=== PATIENT | female | born 1945 | race Caucasian/White ===

== ENCOUNTER → 2021-04-08 | Day surgery (SDC) | payer OTHER ==
[~2021-04-08] VITALS: Ht 160 cm; Wt 84.9 kg
[~2021-04-08] MED LIST: 3IN1 COMMODE; ASPIRIN EC81 MG PO; CITRACAL-D3 MA1 EACH PO; COZAAR100 MG PO; FLONASE ALLER15.8 ML; HCTZ12.5 MG PO; LIPITOR40 MG PO; METFORMIN HCL500 MG PO; NIASPAN500 MG PO; PRILOSEC20 MG PO; SYNTHROID100 MCG PO
[2021-04-08 09:10] LABS: BILIRUBIN - TOTAL 0.7 mg/dL (0.2-1.0); BUN/CREAT RATIO (CALC) 18.8 RATIO; CREATININE 0.8 mg/dL (0.51-0.95); GLOBULIN (CALCULATION) 3.6 g/dL; POTASSIUM 3.8 mmol/L (3.5-5.1); TOTAL PROTEIN 7.6 g/dL (6.4-8.2)
[2021-04-08 09:16] LABS: HCT 44.4 % (37.0-47.0); HGB 14.4 g/dl (12.5-16.0); MCH 30.3 pg (25.0-31.0); MCHC 32.4 g/dL (32.0-36.0); MCV 93.3 fL (78.0-100.0); MPV 9.1 fL (6.0-9.5); RBC 4.76 M/uL (4.20-5.40); RDW 12.8 % (11.5-14.0); WBC 8.6 K/uL (4.0-10.5)
== END | disposition home or self-care (01) ==
LOC: FAS 08:18
PROVIDERS: Surgery
DX: K31.9 Disease of stomach and duodenum, unspecified (principal); Z12.11 Encounter for screening for malignant neoplasm of colon; K63.5 Polyp of colon; K21.00 Gastro-esophageal reflux disease with esophagitis, without bleeding; K44.9 Diaphragmatic hernia without obstruction or gangrene; K29.70 Gastritis, unspecified, without bleeding; K57.30 Diverticulosis of large intestine without perforation or abscess without bleeding; Z79.899 Other long term (current) drug therapy
CPT/HCPCS: 36415; 80053; J1610; J2704; J7120